=== PATIENT | male | born 1985 | race Caucasian/White ===

== ENCOUNTER 2019-12-09 14:03 | Outpatient (CLI) | payer MEDICAID, SELFPAY ==
--- NOTE | 2019-12-09 14:45 | DI.RAD_ITS ---
EXAM: XR FINGER LT INDEX CLINICAL HISTORY: CONTUSION OF FINGER OF LT HAND, S60.00XA, R/O FX. TECHNIQUE: 2D digital imaging was performed. COMPARISON: None. FINDINGS: BONES: No acute fracture is present. No bony destructive lesion is seen. There is a smoothly margina yue bony density near the radial base of the proximal phalanx. It is likely related to old trauma. JOINTS: No dislocation present. SOFT TISSUE: Normal. IMPRESSION: No acute abnormality. DATA REPOSITORY: RADIATION DOSE DELIVERED:
== END 2019-12-09 14:23 ==
PROVIDERS: PCP Nurse Practitioner; Visit Provider Nurse Practitioner
DX: S60.022A Contusion of left index finger without damage to nail, initial encounter (principal)
CPT/HCPCS: 73140

== ENCOUNTER 2020-01-23 02:11 | Outpatient (CLI) | payer MEDICAID, SELFPAY ==
[2020-01-23 15:13] LABS: HGB 16.4 g/dL (13.5-17.5); MCH 27.4 pg (27.0-33.0); MCHC 33.5 % (32.0-36.0); MCV 81.9 fL (80-95); MPV 9.2 fL (8.0-11.0); Platelet Count 267 10^3/uL (130-400); RBC 5.98 10^6/uL (4.36-5.78); RDW 12.5 % (11.8-14.1); RDW-SD 37.4 fL; WBC 7.53 10^3/uL (4.4-10.8)
[2020-01-23 15:42] LABS: Hemoglobin A1C 5.3 % (3.8-5.6)
[2020-01-23 16:10] LABS: Calculated LDL 72 mg/dL (<100); Cholesterol 126 mg/dL (<200); HDL Cholesterol 44 mg/dL (40-60); TSH 0.79 uIU/mL (0.36-3.74); Triglyceride 50 mg/dL (<150)
[2020-01-26 07:38] LABS: Testosterone, Total 627 ng/dL (240-950)
== END 2020-01-23 02:31 ==
PROVIDERS: PCP Nurse Practitioner; Visit Provider Nurse Practitioner
DX: N52.9 Male erectile dysfunction, unspecified (principal); R68.82 Decreased libido; Z13.6 Encounter for screening for cardiovascular disorders; Z13.1 Encounter for screening for diabetes mellitus; F32.9 Major depressive disorder, single episode, unspecified; F41.9 Anxiety disorder, unspecified
CPT/HCPCS: 36415; 80061; 84403; 85027; 83036; 84443

== ENCOUNTER 2020-02-15 02:50 | Outpatient (CLI) | payer MEDICAID, SELFPAY ==
[2020-02-15 12:27] LABS: Abs Immature Grans 0.01 10^3/uL (0.0-0.06); Absolute Basophil Count 0.02 10^3/uL (0.0-0.2); Absolute Eosinophil Count 0.02 10^3/uL (0.0-0.7); Absolute Monocyte Count 0.41 10^3/uL (0.1-0.8); Absolute Neutrophil Count 4.88 10^3/uL (1.2-6.7); Basophils % 0.3; Eosinophils % 0.3; HCT 49.7 % (40.0-50.0); HGB 16.5 g/dL (13.5-17.5); Immature Grans % 0.2; Lymphocytes % 17.1; MCH 27.2 pg (27.0-33.0); MCHC 33.2 % (32.0-36.0); MPV 9.3 fL (8.0-11.0); Monocytes % 6.4; Neutrophils % 75.7; Nucleated RBC 0 %; Platelet Count 303 10^3/uL (130-400); RBC 6.06 10^6/uL (4.36-5.78); RDW 12.7 % (11.8-14.1); WBC 6.44 10^3/uL (4.4-10.8)
[2020-02-15 13:08] LABS: Diff Comment RBC Morph Reviewed; RBC Morphology Normal
[2020-02-15 13:21] LABS: Iron 60 ug/dL (65-175)
== END 2020-02-15 03:10 ==
PROVIDERS: PCP Nurse Practitioner; Visit Provider Nurse Practitioner
DX: Z86.2 Personal history of diseases of the blood and blood-forming organs and certain disorders involving the immune mechanism (principal)
CPT/HCPCS: 36415; 83540; 85025

== ENCOUNTER 2020-03-13 15:01 | Outpatient (REF) | payer MEDICAID, SELFPAY ==
[2020-03-17 13:43] LABS: Anaplasma phagocytophilum Negative (Negative); B. miyamotoi PCR Negative (Negative); Babesia divergens/MO-1 Negative (Negative); Babesia duncani Negative (Negative); Babesia microti Negative (Negative); Ehrlichia chaffeensis Negative (Negative); Ehrlichia ewingii/canis Negative (Negative); Ehrlichia muris eauclairensis Negative (Negative)
== END 2020-03-13 15:21 ==
LOC: LBN 15:01
PROVIDERS: PCP Nurse Practitioner; Visit Provider Physician Assistant
DX: R53.83 Other fatigue (principal)
CPT/HCPCS: 87798

== ENCOUNTER 2020-03-26 01:38 | Outpatient (CLI) | payer MEDICAID, SELFPAY ==
[2020-03-26 10:46] LABS: ALT 43 U/L (16-63); AST 30 U/L (15-37); Albumin 3.9 g/dL (3.4-5.0); Alkaline Phosphatase 144 U/L (46-116); Anion Gap 6.4 mmol/L (3-11); BUN 13 mg/dL (7-18); Bilirubin, Total 0.3 mg/dL (0.2-1.0); C-Reactive Protein 0.07 mg/dL (0.0-0.3); CO2 30.6 mmol/L (21.0-32.0); Calcium 9.7 mg/dL (8.5-10.1); Chloride 103 mmol/L (98-107); Glucose 77 mg/dL (74-106); Sodium 140 mmol/L (136-145); Total Protein 7.1 g/dL (6.4-8.2)
[2020-03-26 16:59] LABS: Rheumatoid Factor <8.6 IU/mL (<12.0)
== END 2020-03-26 01:58 ==
PROVIDERS: PCP Nurse Practitioner; Visit Provider Nurse Practitioner
DX: R53.83 Other fatigue (principal); M25.59 Pain in other specified joint; K52.9 Noninfective gastroenteritis and colitis, unspecified
CPT/HCPCS: 36415; 80053; 86140; 86431

== ENCOUNTER 2021-03-04 03:41 | Outpatient (CLI) | payer MEDICAID, SELFPAY ==
[2021-03-04 12:26] LABS: Source Nasal/Nares
[2021-03-04 15:51] LABS: COVID-19 PCR Negative (Negative)
== END 2021-03-04 03:42 | disposition home or self-care (01) ==
LOC: LBO 03:41
PROVIDERS: PCP Nurse Practitioner Family; Visit Provider Student in an Organized Health Care Education/Training Program
DX: Z20.822 Contact with and (suspected) exposure to COVID-19 (principal); Z01.818 Encounter for other preprocedural examination
CPT/HCPCS: 87635

== ENCOUNTER 2021-03-06 01:47 | Outpatient (CLI) | payer MEDICAID, SELFPAY ==
--- NOTE | 2021-03-06 08:00 | DI.MRI_ITS ---
Exam(s) MR LOWER JOINT RT WO EXAM: MR LOWER JOINT RT WO CLINICAL HISTORY: PAIN, PERONEAL TENDINITIS RT LEG, RT ANKLE PAIN, M76.71, M25.571 TECHNIQUE: Multiplanar multisequence MRI was performed without intravenous contrast. COMPARISON: CR Ankle Right 3 Views or More from 12/24/2020 FINDINGS: BONES/JOINTS: No fracture or contusion pattern. Note is made of an intraosseous lipoma of the calcane us. The talar dome is smooth. The ankle mortise is maintained. No joint effusion is present. LIGAMENTS: The tibiofibular and calcaneofibular ligaments are intact. The talofibular ligaments are i ntact. The deltoid ligament is intact. The syndesmosis is unremarkable. Sinus tarsi is normal. MUSCULOTENDINOUS STRUCTURES: Achilles tendon: Unremarkable. Plantar fascia: Unremarkable. Anterior Extensor tendons: Unremarkable. Posterior Tibialis: Unremarkable. Flexor Digitorum longus: Unremarkable. Flexor Hallucis longus: Unremarkable. Peroneus longus: There is fluid seen around both the peroneus longus and brevis tendons. The prone i s brevis tendon has a C shape. There appear to be 2 components to the peroneus brevis tendon suggest ing a split/tear. Peroneus brevis:Please see above. SOFT TISSUES: Unremarkable. OTHER FINDINGS: None. IMPRESSION: 1. Findings suggestive of a peroneus brevis split. 2. Peroneal tendinosis. 3. Intraosseous lipoma of the calcaneus. DATA REPOSITORY:
== END 2021-03-06 02:07 ==
PROVIDERS: PCP Nurse Practitioner; Visit Provider Student in an Organized Health Care Education/Training Program
DX: M25.571 Pain in right ankle and joints of right foot (principal); M76.71 Peroneal tendinitis, right leg; D17.79 Benign lipomatous neoplasm of other sites
CPT/HCPCS: 73721

== ENCOUNTER 2021-03-25 02:52 | Outpatient (CLI) | payer MEDICAID, SELFPAY ==
[2021-03-25 11:06] LABS: Source Nasal/Nares
[2021-03-25 16:00] LABS: COVID-19 PCR Negative (Negative)
== END 2021-03-25 02:53 | disposition home or self-care (01) ==
LOC: LBO 02:52
PROVIDERS: PCP Nurse Practitioner Family; Visit Provider Student in an Organized Health Care Education/Training Program
DX: Z20.822 Contact with and (suspected) exposure to COVID-19 (principal); Z01.818 Encounter for other preprocedural examination
CPT/HCPCS: 87635

== ENCOUNTER 2021-03-27 06:20 | Day surgery (SDC) | payer MEDICAID, SELFPAY ==
[2021-03-27 06:29] VITALS: BP 129/90; PULSE 71; RESP 16; TEMP 36.1; O2SAT 99
--- NOTE | 2021-03-27 06:43 | W.ANESPRE ---
General Info Date of Service Date Performed: 03/27/21 Height: 5 ft 6 in Weight: 75.4 kg Body Mass Index (BMI): 26.8 Surgical Procedure: Operation Date: 03/27/21 07:40 Proposed Procedures Side Surgeon p Wrist ECTR Right Newton Don MD Meds Allergies and Home Medications Allergies Allergy/AdvReac Type Severity Reaction Status Date / Time No Known Allergies Allergy Verified 03/27/21 06:48 Home Medication Medication Instructions Recorded dextroamphetamine-amphetamine ER 20 mg PO DAILY #60 cap MDD 20mg 03/07/21 10 mg 24hr capsule,extend release Current Visit Medications: Current Medications Generic Name Dose Route Start Last Admin Trade Name Freq PRN Reason Stop Dose Admin Ringer's Solution 1,000 mls @ 80 mls/hr 03/27/21 06:00 IV 04/25/21 23:59 INFUSION VENITA Cefazolin Sodium/Dextrose 2 gm in 50 mls @ 100 mls/hr 03/27/21 06:00 Ancef Duplex IVPB 03/27/21 16:00 PREOP VENITA IV Miscellaneous Supplies 1 each 03/27/21 06:00 Iv Access IV 04/25/21 23:59 DIRECTED VENITA Sodium Chloride 0 ml 03/27/21 06:00 Normal Saline Flush 10 Ml Syr IV 04/25/21 23:59 PRN PRN Sodium Chloride 0 ml 03/27/21 06:00 Normal Saline 10 Ml Vial IJ 04/25/21 23:59 DIRECTED PRN Sterile Water 0 ml 03/27/21 06:00 Water,Injection,Sterile 10 Ml Vial IJ 04/25/21 23:59 DIRECTED PRN PFSH Active Problems Active Problems: Problem Status Onset Code ADHD F90.9 Dyshidrotic dermatitis L30.1 Elevated alkaline phosphatase level R74.8 Numbness and tingling in both hands R20.0, R20.2 Right knee pain M25.561 Right ankle pain M25.571 Peroneal tendinitis, right leg M76.71 Chronic fatigue R53.82 Anxiety and depression F41.9, F32.9 Bilateral carpal tunnel syndrome G56.03 IBD (inflammatory bowel disease) K52.9 Medical History Medical History Anxiety and depression Bilateral carpal tunnel syndrome Chronic fatigue Hemorrhoids Bandings x4 IBD (inflammatory bowel disease) Surgical History Surgical History H/O hemorrhoidectomy [facility] [place] History of vasectomy Hx of tonsillectomy Tobacco Smoking/Tobacco Use Status: Never Passive smoking exposure: Yes Second hand exposure: Yes Alcohol Alcohol Intake: current Alcohol intake frequency: holidays/special occasions only Alcohol type: hard liquor Substance Use Substance use: Rarely Substance use type: marijuana Vital Signs and Lab Results Vital Signs Most Recent Vital Signs in EMR: Most Recent Vital Signs Temp Pulse Resp BP Pulse Ox 36.1 C L 71 16 129/90 99 03/27/21 06:29 03/27/21 06:29 03/27/21 06:29 03/27/21 06:29 03/27/21 06:29 Lab Results Blood Type / Crossmatch: No Data to Display Complete Blood Count: No Data to Display Complete Metabolic Panel: No Data to Display Liver Function Panel: No Data to Display Coagulation Panel: No Data to Display Cardiac Panel: No Data to Display Arterial Blood Gas: No Data to Display Venous Blood Gas: No Data to Display Pancreas Panel: No Data to Display Thyroid Panel: No Data to Display Infectious Disease: Coronavirus (COVID-19)(PCR) Negative (Negative) 03/25/21 09:39 03/25/21 Coronavirus 2019 Source Nasal/Nares 03/25/21 09:39 03/25/21 Blood Cultures: No Data to Display Toxicology Panel: No Data to Display Anesthesia Assessment and Plan Anesthesia History Personal History: No History of Anesthesia Complications Family History: No Family History of Anesthesia Complications Exercise Tolerance Exercise Tolerance: Metabolic Equivalents>4 Pertinent Negatives Pertinent Negatives: No Symptoms of GERD, No Major Cardiovascular Symptoms or Complaints, No Major Pulmonary Symptoms or Complaints and No History of CVA/TIA Cardiac & Pulmonary Exam Cardiac Exam: Normal S1/S2 Heart Sounds Pulmonary Exam: Clear Bilateral Breath Sounds Airway Exam Known Difficult Airway: No Mallampati Class: 1 Mouth Opening: Normal (> 3cm) Thyromental Distance: Greater than 3 cm Neck Range of Motion: Full ROM Neck Circumference: Normal Teeth Condition: Normal Dentition ASA Classification ASA Score: ASA 2 Emergency Case?: No NPO Status NPO Status: NPO Clears >2 hours, Solids >8 hours Anesthesia Plan Resuscitation Status: Full Code Anesthesia Technique: General Anesthesia Airway Planned: Natural Airway Monitors Used: Standard Monitors
[2021-03-27] MEDS: Lactated Ringers 1,000 ML 80 ML IV (06:47)
[2021-03-27 07:04] VITALS: BMI 26.8
--- NOTE | 2021-03-27 07:10 | HPE_ITS ---
Date of service: 03/27/21 Time of Service: 07:12 Assessment and Plan Assessment and plan (1) Bilateral carpal tunnel syndrome: Status: Acute Assessment and plan: Gael is a 35-year-old bilateral carpal tunnel syndrome. He has failed nonoperative treatment and desires to have carpal tunnel releases. We will start with the right side today, to be followed by the left side in the future. He has no significant medical history to prevent proceeding today. I reviewed carpal tunnel release with him. I discussed the technical details of carpal tunnel release and that I perform an endoscopic release, but would make a larger, open, incision if necessary for visualization. I discussed the risks of the procedure to include, but not limited to, bleeding, infection, palmar pain, stiffness, damage to nerves, damage to vessels, damage to tendons, weakness, recurrence, and incomplete release. Given these risks, Gael desires to proceed. History of Present Illness History of Present Illness Chief Complaint: Bilateral Carpal Tunnel Syndrome Narrative: This is a 35-year-old who has bilateral carpal tunnel syndrome. He has been diagnosed with this disease from clinical evaluation as well as nerve reduction studies. He has failed nonoperative treatments. He is here today for his right carpal tunnel to proceed later with a left carpal tunnel. He denies any new symptoms different from stated in his clinic visit. He denies sick contacts. He has no chest pain or shortness of breath. Review of Systems All systems reviewed & are unremarkable except as noted in HPI and below PFSH Medical History Anxiety and depression Bilateral carpal tunnel syndrome Chronic fatigue Hemorrhoids Bandings x4 IBD (inflammatory bowel disease) Surgical History H/O hemorrhoidectomy [facility] [place] History of vasectomy Hx of tonsillectomy Family History Mother Hyperlipidemia Hypertension Father Heart disease Sister No problems noted. Brother No problems noted. Brother No problems noted. Maternal Grandfather , age 55 Heart disease Diabetes Maternal Grandmother , age 89 Pancreatic cancer Paternal Grandfather Heart disease Prostate cancer Great grandfather Paternal Grandmother Breast cancer mastectomy Uncle Brain cancer Paternal Grandfather No problems noted. Social History Smoking/Tobacco Use Status: Never Second Hand Exposure: Yes Smoking risk assessment performed?: Yes Alcohol Intake: current Alcohol Intake frequency: holidays/special occasions only Alcohol type: hard liquor Drug use: Rarely Substance use type: marijuana Caregiver/Support person: No Household members: none Housing: house Communication Needs: None Do you need help understanding health information?: Never Pets and animals: Yes Pets and animals: cat(s) Sexually active: Yes Do you think of yourself as: straight/heterosexual Current gender identity: male What is your relationship status?: never How often do you talk on the phone with friends or family?: three or more times per week How often do you get together with friends or relatives?: twice per week How often do you attend hinduism or scientologist services?: 4 or more times per year Do you belong to any clubs or organized social groups?: no Panel score (0-1 are the most socially isolated patients): 2 What type of physical activity do you participate in: none Haley/Sikhism: Orthodox Special haley needs: No Seatbelt use: always Helmet use: Yes Helmet use: sometimes 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 Do you feel safe at home: Yes Do you feel safe in your relationship?: Yes Meds Allergies and Home Medications Allergies Allergy/AdvReac Type Severity Reaction Status Date / Time No Known Allergies Allergy Verified 03/27/21 06:48 Home Medications Medication Instructions Recorded Confirmed Type dextroamphetamine-amphetamine ER 20 mg PO DAILY #60 cap MDD 20mg 03/07/21 03/27/21 Rx 10 mg 24hr capsule,extend release Exam Resp Effort & Inspection: normal respiratory effort Auscultation: clear to auscultation bilaterally Cardio Rate: regular rate Rhythm: regular rhythm Results Last Vital Signs Temp 36.1 C L 03/27/21 06:29 Pulse 71 03/27/21 06:29 Resp 16 03/27/21 06:29 BP 129/90 03/27/21 06:29 Pulse Ox 99 03/27/21 06:29
[2021-03-27] MEDS: ceFAZolin 2 GM/50 ML BAG IVPB (07:26)
[2021-03-27] MEDS: Sodium Bicarbonate 50 MEQ/50 ML VIAL (07:36)
--- NOTE | 2021-03-27 07:48 | W.PM.DSUDISC ---
Discharge Plan Disposition Patient Disposition: HOME Condition: Good Discharge Details Reason For Visit: R ECTR Attending Provider: Newton Don Primary Care Provider: Austen Nuñez Home Meds and New Rx's Prescriptions: New acetaminophen 500 mg capsule 1,000 mg PO Q8H PRN PRNQty: 90 RF: 0 ibuprofen 600 mg tablet 600 mg PO TID PRN (Reason: pain) Qty: 90 RF: 0 hydrocodone-acetaminophen 5-325 mg tablet 1 tab PO Q6H PRN (Reason: pain) Qty: 3 RF: 0 Continued dextroamphetamine-amphetamine 10 mg capsule,extended release 24hr 20 mg PO DAILY MDD 20mg Qty: 60 RF: 0 Discharge Instructions Stand Alone Forms: Janettska Armand Tunnel Release Activity:: Activity as Tolerated Remove Dressings/Wound Care:: 48 hours Shower/Bathe:: 48 hours Diet:: As Tolerated Discharge Orders Discharge Orders: Discharge Order (Routine); Ordered 03/27/21 Ordered By: Ahmet Rodriguez DS: Diagnosis Discharge Diagnosis (1) Bilateral carpal tunnel syndrome: Status: Acute
[2021-03-27 07:52] VITALS: BP 101/64; PULSE 75; RESP 16; TEMP 36.3; O2SAT 98
--- NOTE | 2021-03-27 07:57 | ROE_ITS ---
Date of service: 03/27/21 Time of Service: 07:57 Operative Note Operative Note POST-OP DIAGNOSIS: same PROCEDURE: Right Endoscopic Carpal Tunnel Release SURGEON: Newton Don Refer to Anesthesia Record ESTIMATED BLOOD LOSS: 0 PATHOLOGY: none sent TOURNIQUET TIME: 6 COMPLICATIONS: None Patient was transported to: same day Patient's condition: stable Indications: I have seen Gael in clinic for symptoms of carpal tunnel syndrome. The numbness, tingling, and pain limited function. Clinical exam findings with nerve conduction tests confirmed the diagnosis of carpal tunnel syndrome. Nono perative measures such as bracing, time, activity modifications had been tried but disability and pain persisted. I discussed carpal tunnel release with the patient. I reviewed the risks of the procedure to include, but not limited to, bleeding, infection, pain, stiffness, incomplete release, damage to nerves or vessels, persistent numbness, recurrence. Despite these risks, the patient elected to proceed. Findings: There was tightened carpal tunnel. This was dilated and released successfully with the endoscopic with increased space within the tunnel. The antebrachial fascia was released proximally freeing the median nerve at the wrist. Procedure Description: Gael was greeted in the preoperative holding area where the correct side was identified and marked. The consent was reviewed with the patient and signed. The history and physical was updated. All questions were answered. He was taken back to the operating room. The patient was placed into the supine position on the operating room table with the right arm on an arm board. A nonsterile tourniquet was placed high onto the arm. All bony prominences were well padded. Prophylactic antibiotics in the form of Cefazolin were administered. The right arm was then prepped with Chloraprep and draped in a standard fashion with stockinette and extremity drape. A timeout to confirm correct identity, side and site, procedure, allergies, anesthesia, and medical concerns was performed. The surgical site was marked in the volar wrist creases in line with the radial border of the fourth ray. This area was anesthetized with approximately 6cc of 1% Lidocaine. The limb was then exsanguinated with an Esmarch. The skin was incised with a 15 blade, approximately 1cm. The skin only was cut and the deeper tissue was dissected bluntly with a tenotomy scissor, avoiding passing nerve and venous structures. The fascia was penetrated and opened bluntly. A two-prong skin hook was placed under this proximal fascial edge. A series of hamate finders were used to identify and dilate the carpal tunnel. Synovial elevator was used to free synovial attachments to the underside of the transverse carpal ligament. My thumb was kept in the palm to ash the distal extent of the carpal tunnel and correctly position the hand. The Microaire endoscope was inserted without difficulty and without resistance. Excellent visualization showed horizontally running fibers of the transverse carpal ligament (TCL). The distal extent of the TCL was visualized and the end of the scope palpated with the thumb. The blade was elevated and withdrawn from distal to proximal. The TCL was split into two flaps. The endoscope was jayleen nserted to confirm complete release and any remnant ligament was incised. The scope was withdrawn and the proximal aspect of the carpal tunnel was grossly inspected and appeared release with the median nerve visible. The antebrachial fascia at the level of the wrist was then freed from the overlying skin and then the underlying median nerve with blunt dissection. This was transected longitudinally for about 3cm proximal to the wrist incision. The wound was then irrigated with easy flow of irrigant distally and proximally. The incision was closed with a single 4-0 Nylon suture. The wound was dressed with Xeroform, Gauze, Kerlix and Bright. The tourniquet was deflated with the initial dressing and held with some pressure. Blood flow returned easily to all digits with capillary refill less than 2 seconds. The patient tolerated the procedure well and was returned to the Same Day Surgery area in a stable condition suffering no known complication.
--- NOTE | 2021-03-27 08:00 | W.ANESPOSTOP ---
Postoperative Evaluation Date, Time and Location Date Performed: 03/27/21 Time Performed: 08:00 Patient Location: Day Surgery Unit Vital Signs Most Recent Imported Vital Signs: Most Recent Vital Signs Temp Pulse Resp BP Pulse Ox 36.3 C L 75 16 101/64 98 03/27/21 07:52 03/27/21 07:52 03/27/21 07:52 03/27/21 07:52 03/27/21 07:52 Pain Score Most Recent Pain Score: Most Recent Pain Score Pain Level 0 03/27/21 07:52 Assessment Mental Status: Arousable with meaningful communication Airway and Respiratory Function: Patent airway with normal (patient baseline) respiratory exam Cardiovascular Function: Hemodynamically Stable Hydration Status: Adequately Hydrated Nausea & Vomiting: No Nausea or Vomiting Pain: Pt. Denies Any Pain Peripheral Nerve Block: Patient did not receive a nerve block
[2021-03-27 08:18] VITALS: BP 98/61; PULSE 60; RESP 16; TEMP 36.3; O2SAT 95
== END 2021-03-27 09:00 | disposition home or self-care (01) ==
PROVIDERS: PCP Nurse Practitioner Family; Visit Provider Student in an Organized Health Care Education/Training Program
PROC: 01N54ZZ Release Median Nerve, Percutaneous Endoscopic Approach (ICD-10-PCS; CPT 29848; principal; 2021-03-27 07:30)
DX: G56.03 Carpal tunnel syndrome, bilateral upper limbs (principal)
CPT/HCPCS: 29848; J0690; J1885; J2250; J2405

== ENCOUNTER 2021-04-08 02:44 | Outpatient (CLI) | payer MEDICAID, SELFPAY ==
[2021-04-08 12:57] LABS: Source Nasal/Nares
[2021-04-08 23:12] LABS: COVID-19 PCR Negative (Negative)
== END 2021-04-08 02:45 | disposition home or self-care (01) ==
LOC: LBO 02:44
PROVIDERS: PCP Nurse Practitioner Family; Visit Provider Student in an Organized Health Care Education/Training Program
DX: Z20.822 Contact with and (suspected) exposure to COVID-19 (principal); Z01.818 Encounter for other preprocedural examination
CPT/HCPCS: 87635

== ENCOUNTER 2021-04-10 06:19 | Day surgery (SDC) | payer MEDICAID, SELFPAY ==
[2021-04-10 06:24] VITALS: BP 122/89; PULSE 65; RESP 16; TEMP 36.4; O2SAT 98
--- NOTE | 2021-04-10 06:49 | W.PM.DSUDISC ---
Documented by User: FRACISCO Constantino 04/10/21 06:54 Discharge Plan Disposition Patient Disposition: HOME Condition: Good Discharge Details Reason For Visit: Left ECTR Attending Provider: Newton Don Primary Care Provider: Austen Nuñez Home Meds and New Rx's Prescriptions: Continued dextroamphetamine-amphetamine 10 mg capsule,extended release 24hr 20 mg PO DAILY MDD 20mg Qty: 60 RF: 0 acetaminophen 500 mg capsule 1,000 mg PO Q8H PRN PRNQty: 90 RF: 0 ibuprofen 600 mg tablet 600 mg PO TID PRN (Reason: pain) Qty: 90 RF: 0 hydrocodone-acetaminophen 5-325 mg tablet 1 tab PO Q6H PRN (Reason: pain) Qty: 3 RF: 0 Discharge Instructions Stand Alone Forms: Florencia Acuna Tunnel Release Referrals: Newton Don MD [ [facility] STAFF PHYSICIAN] - Activity:: Activity as Tolerated Remove Dressings/Wound Care:: 72 hours Shower/Bathe:: 72 hours Diet:: As Tolerated Discharge Orders Discharge Orders: Discharge Order (Routine); Ordered 04/10/21 Ordered By: Amada Cody DS: Diagnosis Discharge Diagnosis (1) Carpal tunnel syndrome on left: Status: Acute Documented by User: Newton Don MD 04/10/21 07:46 Discharge Plan Disposition Patient Disposition: HOME Condition: Good Discharge Details Reason For Visit: Left ECTR Attending Provider: Newton Don Primary Care Provider: Austen Nuñez Home Meds and New Rx's Prescriptions: Continued dextroamphetamine-amphetamine 10 mg capsule,extended release 24hr 20 mg PO DAILY MDD 20mg Qty: 60 RF: 0 acetaminophen 500 mg capsule 1,000 mg PO Q8H PRN PRNQty: 90 RF: 0 ibuprofen 600 mg tablet 600 mg PO TID PRN (Reason: pain) Qty: 90 RF: 0 hydrocodone-acetaminophen 5-325 mg tablet 1 tab PO Q6H PRN (Reason: pain) Qty: 3 RF: 0 Discharge Instructions Stand Alone Forms: Florencia Acuna Tunnel Release Referrals: Newton Don MD [ [facility] STAFF PHYSICIAN] - Activity:: Activity as Tolerated Remove Dressings/Wound Care:: 72 hours Shower/Bathe:: 72 hours Diet:: As Tolerated Discharge Orders Discharge Orders: Discharge Order (Routine); Ordered 04/10/21 Ordered By: Amada Cody
[2021-04-10] MEDS: Lactated Ringers 1,000 ML 80 ML IV (06:52)
--- NOTE | 2021-04-10 06:58 | W.ANESPRE ---
General Info Date of Service Date Performed: 04/10/21 Height: 5 ft 6 in Weight: 75.4 kg Body Mass Index (BMI): 26.8 Surgical Procedure: Operation Date: 04/10/21 07:40 Proposed Procedures Side Surgeon p Wrist ECTR Left Newton Don MD Meds Allergies and Home Medications Allergies Allergy/AdvReac Type Severity Reaction Status Date / Time No Known Allergies Allergy Verified 04/10/21 06:34 Home Medication Medication Instructions Recorded dextroamphetamine-amphetamine ER 20 mg PO DAILY #60 cap MDD 20mg 03/07/21 10 mg 24hr capsule,extend release acetaminophen 1,000 mg PO Q8H PRN PRN #90 cap 03/27/21 hydrocodone-acetaminophen 1 tab PO Q6H PRN #3 tab 03/27/21 ibuprofen 600 mg PO TID PRN #90 tab 03/27/21 Current Visit Medications: Current Medications Generic Name Dose Route Start Last Admin Trade Name Freq PRN Reason Stop Dose Admin Acetaminophen 650 mg 04/10/21 06:48 Acetaminophen 325 Mg Tab PO Q4H PRN PRN Hydrocodone Bitart/Acetaminophen 0 tab 04/10/21 06:48 Hydrocodone 5/Acetaminophen 325 Tab PO Q3H PRN PRN Pain Ringer's Solution 1,000 mls @ 80 mls/hr 04/10/21 06:00 04/10/21 06:52 IV 05/09/21 23:59 80 mls/hr INFUSION VENITA Administration Cefazolin Sodium/Dextrose 2 gm in 50 mls @ 100 mls/hr 04/10/21 06:00 Ancef Duplex IVPB 05/09/21 23:59 PREOP VENITA Ondansetron HCl 4 mg/ Sodium 52 mls @ 200 mls/hr 04/10/21 06:48 Chloride IVPB Q6H PRN PRN IV Miscellaneous Supplies 1 each 04/10/21 06:00 Iv Access IV 05/09/21 23:59 DIRECTED VENITA Sodium Chloride 0 ml 04/10/21 06:00 Normal Saline Flush 10 Ml Syr IV 05/09/21 23:59 PRN PRN Sodium Chloride 0 ml 04/10/21 06:00 Normal Saline 10 Ml Vial IJ 05/09/21 23:59 DIRECTED PRN Sterile Water 0 ml 04/10/21 06:00 Water,Injection,Sterile 10 Ml Vial IJ 05/09/21 23:59 DIRECTED PRN PFSH Active Problems Active Problems: Problem Status Onset Code Carpal tunnel syndrome on left G56.02 Carpal tunnel syndrome on right G56.01 ADHD F90.9 Dyshidrotic dermatitis L30.1 Elevated alkaline phosphatase level R74.8 Numbness and tingling in both hands R20.0, R20.2 Right knee pain M25.561 Right ankle pain M25.571 Peroneal tendinitis, right leg M76.71 Chronic fatigue R53.82 Anxiety and depression F41.9, F32.9 IBD (inflammatory bowel disease) K52.9 Medical History Medical History (Updated 04/10/21 @ 06:50 by FRACISCO Constantino) Anxiety and depression Chronic fatigue Hemorrhoids Bandings x4 IBD (inflammatory bowel disease) Surgical History Surgical History Carpal tunnel syndrome on right S/P ECTR: 03/27/2021 [place] [facility] [place] History of vasectomy Hx of tonsillectomy Tobacco Smoking/Tobacco Use Status: Never Passive smoking exposure: Yes Second hand exposure: Yes Alcohol Alcohol Intake: current Alcohol intake frequency: holidays/special occasions only Alcohol type: hard liquor Substance Use Substance use: Occasionally Substance use type: marijuana Details: smoked marijuana yesterday 04.09.21 Vital Signs and Lab Results Vital Signs Most Recent Vital Signs in EMR: Most Recent Vital Signs Temp Pulse Resp BP Pulse Ox 36.4 C L 65 16 122/89 98 04/10/21 06:24 04/10/21 06:24 04/10/21 06:24 04/10/21 06:24 04/10/21 06:24 Lab Results Blood Type / Crossmatch: No Data to Display Complete Blood Count: No Data to Display Complete Metabolic Panel: No Data to Display Liver Function Panel: No Data to Display Coagulation Panel: No Data to Display Cardiac Panel: No Data to Display Arterial Blood Gas: No Data to Display Venous Blood Gas: No Data to Display Pancreas Panel: No Data to Display Thyroid Panel: No Data to Display Infectious Disease: Coronavirus (COVID-19)(PCR) Negative (Negative) 04/08/21 08:19 04/08/21 Coronavirus 2019 Source Nasal/Nares 04/08/21 08:19 04/08/21 Blood Cultures: No Data to Display Toxicology Panel: No Data to Display Anesthesia Assessment and Plan Anesthesia History Personal History: No History of Anesthesia Complications Family History: No Family History of Anesthesia Complications Exercise Tolerance Exercise Tolerance: Metabolic Equivalents>4 Pertinent Negatives Pertinent Negatives: No Symptoms of GERD, No Major Cardiovascular Symptoms or Complaints and No Major Pulmonary Symptoms or Complaints Cardiac & Pulmonary Exam Cardiac Exam: Normal S1/S2 Heart Sounds Pulmonary Exam: Clear Bilateral Breath Sounds Airway Exam Known Difficult Airway: No Mallampati Class: 1 Mouth Opening: Normal (> 3cm) Thyromental Distance: Greater than 3 cm Neck Range of Motion: Full ROM Neck Circumference: Normal Teeth Condition: Normal Dentition ASA Classification ASA Score: ASA 2 Emergency Case?: No NPO Status NPO Status: NPO Clears >2 hours, Solids >8 hours Anesthesia Plan Resuscitation Status: Full Code Anesthesia Technique: General Anesthesia Airway Planned: Natural Airway Monitors Used: Standard Monitors
[2021-04-10 07:00] VITALS: BMI 26.8
[2021-04-10] MEDS: ceFAZolin 2 GM/50 ML BAG IVPB (07:19)
[2021-04-10] MEDS: Sodium Bicarbonate 50 MEQ/50 ML VIAL (07:30)
--- NOTE | 2021-04-10 07:46 | ROE_ITS ---
Date of service: 04/10/21 Time of Service: 07:46 Operative Note Operative Note DATE OF PROCEDURE: 04/10/21 PRE-OP DIAGNOSIS: Left Carpal Tunnel Syndrome POST-OP DIAGNOSIS: same PROCEDURE: Left Endoscopic Carpal Tunnel Release SURGEON: Newton Don Refer to Anesthesia Record ESTIMATED BLOOD LOSS: 0 PATHOLOGY: none sent TOURNIQUET TIME: 4 COMPLICATIONS: None Patient was transported to: same day Patient's condition: stable Indications: I have seen Gael in clinic for symptoms of carpal tunnel syndrome. The numbness, tingling, and pain limited function. Clinical exam findings with nerve conduction tests confirmed the diagnosis of carpal tunnel syndrome. Nonoperative measures such as bracing, time, activity modifications had been tried but disability and pain persisted. He had a successful carpal tunnel release on the right side. I discussed carpal tunnel release with the patient. I reviewed the risks of the procedure to include, but not limited to, bleeding, infection, pain, stiffness, incomplete release, damage to nerves or vessels, persistent numbness, recurrence. Despite these risks, the patient elected to proceed. Findings: There was tightened carpal tunnel. This was dilated and released successfully with the endoscopic with increased space within the tunnel. The a ntebrachial fascia was released proximally freeing the median nerve at the wrist. Procedure Description: Gael was greeted in the preoperative holding area where the correct side was identified and marked. The consent was reviewed with the patient and signed. The history and physical was updated. All questions were answered. He was taken back to the operating room. The patient was placed into the supine position on the operating room table with the left arm on an arm board. A nonsterile tourniquet was placed high onto the arm. All bony prominences were well padded. Prophylactic antibiotics in the form of Cefazolin were administered. The left arm was then prepped with Chloraprep and draped in a standard fashion with stockinette and extremity drape. A timeout to confirm correct identity, side and site, procedure, allergies, anesthesia, and medical concerns was performed. The surgical site was marked in the volar wrist creases in line with the radial border of the fourth ray. This area was anesthetized with approximately 6cc of 1% Lidocaine. The limb was then exsanguinated with an Esmarch. The skin was incised with a 15 blade, approximately 1cm. The skin only was cut and the deeper tissue was dissected bluntly with a tenotomy scissor, avoiding passing nerve and venous structures. The fascia was penetrated and opened bluntly. A two-prong skin hook was placed under this proximal fascial edge. A series of hamate finders were used to identify and dilate the carpal tunnel. Synovial elevator was used to free synovial attachments to the underside of the transverse carpal ligament. My thumb was kept in the palm to ash the distal extent of the carpal tunnel and correctly position the hand. The Microaire endoscope was inserted without difficulty and without resistance. Excellent visualization showed horizontally running fibers of the transverse carpal ligament (TCL). The distal extent of the TCL was visualized and the end of the scope palpated with the thumb. The blade was elevated and withdrawn from distal to proximal. The TCL was split into two flaps. The endoscope was reinserted to confirm complete release and any remnant ligament was incised. The scope was withdrawn and the proximal aspect of the carpal tunnel was grossly inspected and appeared release with the median nerve visible. The antebrachial fascia at the level of the wrist was then freed from the overlying skin and then the underlying median nerve with blunt dissection. This was transected longitudinally for about 3cm proximal to the wrist incision. The wound was then irrigated with easy flow of irrigant distally and proximally. The incision was closed with a single 4-0 Nylon suture. The wound was dressed with Xeroform, Gauze, Kerlix and Bright. The tourniquet was deflated with the initial dressing and held with some pressure. Blood flow returned easily to all digits with capillary refill less than 2 seconds. The patient tolerated the procedure well and was returned to the Same Day Surgery area in a stable condition suffering no known complication.
[2021-04-10 07:50] VITALS: BP 114/62; PULSE 66; RESP 16; TEMP 36.4; O2SAT 96
--- NOTE | 2021-04-10 07:57 | W.ANESPOSTOP ---
Postoperative Evaluation Date, Time and Location Date Performed: 04/10/21 Time Performed: 07:57 Patient Location: Day Surgery Unit Vital Signs Most Recent Imported Vital Signs: Most Recent Vital Signs Temp Pulse Resp BP Pulse Ox 36.4 C L 66 16 114/62 96 04/10/21 07:50 04/10/21 07:50 04/10/21 07:50 04/10/21 07:50 04/10/21 07:50 Pain Score Most Recent Pain Score: Most Recent Pain Score Pain Level 0 04/10/21 07:50 Assessment Mental Status: Awake (Alert & Oriented to Patient Baseline) Airway and Respiratory Function: Patent airway with normal (patient baseline) respiratory exam Cardiovascular Function: Hemodynamically Stable Hydration Status: Adequately Hydrated Nausea & Vomiting: No Nausea or Vomiting Pain: Pt. Denies Any Pain Peripheral Nerve Block: Patient did not receive a nerve block
[2021-04-10 08:25] VITALS: BP 125/72; PULSE 68; RESP 16; TEMP 36.5; O2SAT 98
== END 2021-04-10 08:52 | disposition home or self-care (01) ==
PROVIDERS: PCP Nurse Practitioner Family; Visit Provider Student in an Organized Health Care Education/Training Program
PROC: 01N54ZZ Release Median Nerve, Percutaneous Endoscopic Approach (ICD-10-PCS; CPT 29848; principal; 2021-04-10 07:30)
DX: G56.02 Carpal tunnel syndrome, left upper limb (principal)
CPT/HCPCS: 29848; J0690; J1885; J2250; J2405

== ENCOUNTER 2021-04-30 22:17 | Outpatient (REF) | payer MEDICAID, SELFPAY ==
[2021-05-02 15:52] LABS: COVID-19 RT-PCR UVMMC Result Positive (Negative)
== END 2021-04-30 22:18 | disposition home or self-care (01) ==
LOC: LBN 22:17
PROVIDERS: PCP Nurse Practitioner Family; Visit Provider Nurse Practitioner Family
DX: Z20.822 Contact with and (suspected) exposure to COVID-19 (principal)
CPT/HCPCS: U0003

== ENCOUNTER 2023-12-14 17:02 | Outpatient (CLI) | payer MEDICAID, SELFPAY ==
[2023-12-14 16:59] LABS: Abs Immature Grans 0.03 10^3/uL (0.0-0.06); Absolute Basophil Count 0.03 10^3/uL (0.0-0.2); Absolute Eosinophil Count 0.03 10^3/uL (0.0-0.7); Absolute Lymphocyte Count 1.68 10^3/uL (1.2-3.4); Absolute Monocyte Count 0.61 10^3/uL (0.1-0.8); Basophils % 0.3 %; Eosinophils % 0.3 %; HCT 48.3 % (40.0-50.0); HGB 16.2 g/dL (13.5-17.5); Immature Grans % 0.3 %; Lymphocytes % 17.5 %; MCH 27.9 pg (27.0-33.0); MCHC 33.5 % (32.0-36.0); MCV 83 fL (80-95); MPV 8.9 fL (8.0-11.0); Monocytes % 6.4 %; Neutrophils % 75.2 %; Platelet Count 269 10^3/uL (130-400); RBC 5.81 10^6/uL (4.36-5.78); RDW 12.6 % (11.8-14.1); WBC 9.58 10^3/uL (4.4-10.8)
[2023-12-14 18:03] LABS: Ferritin 210 ng/mL (26-388); TSH (W/Ref FT4) 2.34 uIU/mL (0.36-3.74); Vitamin B12 367 pg/mL (193-986)
[2023-12-14 18:41] LABS: Iron 64 ug/dL (65-175); Total Iron Binding Capacity 396 ug/dL (250-450)
[2023-12-16 09:04] LABS: Transferrin 281 mg/dL (201-352)
== END 2023-12-14 17:03 | disposition home or self-care (01) ==
LOC: LBO 17:02
PROVIDERS: PCP Nurse Practitioner Family; Visit Provider Nurse Practitioner Family
DX: R53.83 Other fatigue (principal)
CPT/HCPCS: 36415; 82607; 82728; 83540; 83550; 84443; 84466; 85025

== ENCOUNTER 2024-12-27 16:07 | Emergency (ER) | payer MEDICAID, SELFPAY ==
[2024-12-27 16:18] VITALS: BP 153/88; PULSE 85; RESP 16; TEMP 36.6; O2SAT 98
[2024-12-27 18:45] LABS: Abs Immature Grans 0.03 10^3/uL (0.0-0.06); HCT 45.0 % (40.0-50.0); HGB 15.0 g/dL (13.5-17.5); Immature Grans % 0.3 %; MCH 27.8 pg (27.0-33.0); MCHC 33.3 % (32.0-36.0); MCV 83 fL (80-95); MPV 9.3 fL (8.0-11.0); Platelet Count 323 10^3/uL (130-400); RBC 5.40 10^6/uL (4.36-5.78); RDW 12.5 % (11.8-14.1); RDW-SD 37.7 fL; WBC 8.75 10^3/uL (4.4-10.8)
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
[2024-12-27 19:08] LABS: ALT 28 U/L (16-63); AST 23 U/L (15-37); Albumin 4.1 g/dL (3.4-5.0); Alkaline Phosphatase 100 U/L (46-116); Anion Gap 9.1 mmol/L (3-11); BUN 7 mg/dL (7-18); Bilirubin, Total 0.5 mg/dL (0.2-1.0); CO2 27.9 mmol/L (21.0-32.0); Calcium 9.4 mg/dL (8.5-10.1); Chloride 102 mmol/L (98-107); Estimated GFR 118.72 (mL/min/1.73m2); Glucose 93 mg/dL (74-106); Magnesium 2.1 mg/dL (1.8-2.4); Potassium 3.9 mmol/L (3.5-5.1); Sodium 139 mmol/L (136-145); Total Protein 7.6 g/dL (6.4-8.2)
[2024-12-27] MEDS: Cephalexin 500 MG CAP PO (19:35)
[2024-12-27] MEDS: Cephalexin 500 MG CAP, 2 CAPS/BTL PO (19:36)
[2024-12-27 19:57] VITALS: BP 153/88; PULSE 85; RESP 16; TEMP 36.6; O2SAT 98
== END 2024-12-27 19:58 | disposition home or self-care (01) ==
PROVIDERS: Emergency Provider Registered Nurse Emergency; PCP Nurse Practitioner Family
DX: T81.41XA Infection following a procedure, superficial incisional surgical site, initial encounter (principal); N49.2 Inflammatory disorders of scrotum; I10 Essential (primary) hypertension; F17.290 Nicotine dependence, other tobacco product, uncomplicated
CPT/HCPCS: 80053; 99283; 83605; 83735; 85025

== ENCOUNTER 2025-04-21 12:02 | Outpatient (CLI) | payer MEDICAID, SELFPAY | END 2025-04-21 12:03 | disposition home or self-care (01) | PROVIDERS: PCP Nurse Practitioner Family | DX: F64.9 Gender identity disorder, unspecified (principal) | CPT/HCPCS: 36415; 84403; 82670 ==

== ENCOUNTER 2025-05-12 12:07 | Outpatient (CLI) | payer MEDICAID, SELFPAY | END 2025-05-12 12:08 | disposition home or self-care (01) | LOC: LBO 12:07 | PROVIDERS: Nurse Practitioner Women's Health; PCP Nurse Practitioner Family; Visit Provider Nurse Practitioner Family | DX: F64.9 Gender identity disorder, unspecified (principal) | CPT/HCPCS: 36415; 82670 ==